=== PATIENT | male | born 1970 | race Caucasian/White ===

== ENCOUNTER 2019-09-07 18:16 | Emergency (ER) | payer OTHER ==
[~2019-09-07] VITALS: Ht 188 cm; Wt 95.3 kg
--- NOTE | ~2019-09-07 | EMS ---
[facility] [address] [place] [address] EMS Patient Care Report Name: SAEID MALONE Room #: REG KRISTINA Mcguire#: [id number] Admission: 09/07/19 Attend Phys: Discharge: Date of : 70 Report #: [id number] THIS REPORT FOR: //name// Report Transmitted: 09/07/2019 19:27 EMS Care Summary [facility] MED-ACT Incident [id number] @ 09/07/2019 16:44 Incident Location [address] [place] [address] Patient SAEID MALONE Male, 49 Years 1970 Patient Address [address] [place] [id number] Patient History Quadriplegia, Patient Allergies No known allergies, Patient Medications Other, Baclofen, Lorazepam, Chief Complaint Overheated Disposition Transported No Lights/[place] Reason Heart Problems/AICD Transported To [facility] Narrative Chief Complaint: "I feel overheated" HPI: Patient is a quadrapolegic. Patient states since 1000am he has been [facility] [address] [place] [address] EMS Patient Care Report Name: SAEID MALONE Room #: REG KRISTINA Mcguire#: [id number] Admission: 09/07/19 Attend Phys: Discharge: Date of : 70 Report #: [id number] outside in the hot sun on a summer day watching his son play baseball. He states about 30min ago he started to feel overheated, extremely lethargic, and a little nauseated. He states he has had multiple bottles of water today and ate a hamburger around 1400. Patient denies any history of diabetes or problems with his blood sugar. Patient denies any pain. Patient denies any recent traumatic injuries. Patient states he felt healthy and asymptomatic when he arrived to the baseball game at 1000. Assessment: Patient found seated in his motorized wheelchair with wet towels around him and a fan blowing on him in the shade. [facility]FD on scene performing assessments. Patient was warm, diaphoretic, and pale. Patient spoke in slow sentences, but was A&Ox4. See assessment tab for further details. Transport: Patient initially requested to sit in the ambulance AC and cool off. Patient was lifted out of his wheelchair and secured supine on the cot. Patient moved to ambulance were a blood sugar was rechecked and found to be 67. Patient ate half of a twix bar and slowly sipped approximately 100cc of gatorade. Patient's sugar increased to 91. After sitting in the air conditioned ambulance for a prolonged time patient agreed he didn't feel like he could drive home and that he should go to the hospital. Patient's instrument inspector arrived on scene and Lt. Amol assisted loading the patients wheelchair into the patient's vehicle. Transporting. Patient rested supine on the cot en-route to the hospital with AC on max settings. Patient's oxygen levels fluctuated between 88-94% while laying supine. Patient states his O2 levels normally drop when he lays flat but that he does not wear oxygen at home. Patient placed on 2PM of O2. Patient remained stable with no other changes in signs, symptoms, or condition en-route to the hospital. Disposition: Patient delivered to [facility]. Patient moved via lateral sheet drag maneuver without incident. Patient stated he felt a little improvement from initial contact but still not back to normal. Patient care and report transferred to attending RN. Initial Vitals @PTAP: 67,R: 16,BP: 157/111,Pain: 0/10,GCS: 15,SpO2: 94,Revised Trauma: 12, @17:19P: 59,R: 20,BP: 167/122,Pain: 0/10,GCS: 15,Glucose: 68,SpO2: 97,Revised Trauma: 12,TN Suspected: false @17:37P: 57,R: 20,BP: 174/108,Pain: 0/10,GCS: 15,Glucose: 91,SpO2: 97,Revised Trauma: 12,TN Suspected: false @17:59P: 49,R: 16,BP: 152/85,Pain: 0/10,GCS: 15,SpO2: 95,Revised Trauma: 12,TN Suspected: false @17:02P: 68,R: 16,Pain: 0/10,GCS: 15,Temp: 97.8F,SpO2: 92,TN Suspected: false @18:10P: 54,R: 16,BP: 132/76,Pain: 0/10,GCS: 15,SpO2: 95,Revised Trauma: 12,TN Suspected: false @18:06P: 48,R: 20,Pain: 0/10,GCS: 15,SpO2: 98,Revised Trauma: 12, @17:11P: 52,R: 20,BP: 190/124,Pain: 0/10,GCS: 15,Glucose: 53,SpO2: 97,Revised [facility] [address] [place] [address] EMS Patient Care Report Name: SAEID MALONE [facility] [id number] Admission: 09/07/19 Attend Phys: Discharge: Date of : 70 Report #: [id number] Trauma: 12,TN Suspected: false Assessments @16:57MENTAL:Person Oriented,Event Oriented,Time Oriented,Place Oriented,SKIN:Diaphoresis,Pale,HEENT:Head/Face: No Abnormalities,Neck/Airway: No Abnormalities,LUNG SOUNDS:ABDOMEN:PELVIS//GI:Pelvis Other,EXTREMITIES:Left Leg: Other,Right Leg: Other,Left Arm: Other,Right Arm: Other,PULSE:Radial: 2+ Normal,NEURO:No Abnormalities, Impression Heat Exhaustion Procedures @17:0212-Lead ECGResponse: UnchangedSucceeded@17:1912-Lead ECGResponse: UnchangedSucceeded@17:55Oxygen FlowRate: 2 Device: Nasal Cannula (NC) Response: ImprovedSucceeded 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,BP: 157/111 M,PULSE: 67,RR: 16 R,SPO2: 94 Ox,ETCO2: ,BG: ,PAIN: 0,GCS: 15, 16:41,Call Received 16:41,Psap Call 16:44,Dispatched 16:45,En Route 16:54,On Scene 16:56,At Patient 17:02,12-Lead ECG,Response: UnchangedSucceeded, 17:02,BP: / M,PULSE: 68,RR: 16 R,SPO2: 92 Ox,ETCO2: ,BG: ,PAIN: 0,GCS: 15, 17:11,BP: 190/124 M,PULSE: 52,RR: 20 R,SPO2: 97 Ox,ETCO2: ,B,PAIN: 0,GCS: 15, 17:19,12-Lead ECG,Response: UnchangedSucceeded, 17:19,BP: 167/122 M,PULSE: 59,RR: 20 R,SPO2: 97 Ox,ETCO2: ,B,PAIN: 0,GCS: 15, 17:37,BP: 174/108 M,PULSE: 57,RR: 20 R,SPO2: 97 Ox,ETCO2: ,B,PAIN: 0,GCS: 15, 17:53,Depart Scene 17:55,Oxygen FlowRate: 2 Device: Nasal Cannula (NC) Response: ImprovedSucceeded, 17:59,BP: 152/85 M,PULSE: 49,RR: 16 R,SPO2: 95 Ox,ETCO2: ,BG: ,PAIN: 0,GCS: 15, 18:06,BP: 137/ M,PULSE: 48,RR: 20 R,SPO2: 98 Ox,ETCO2: ,BG: ,PAIN: 0,GCS: 15, 18:10,BP: 132/76 M,PULSE: 54,RR: 16 R,SPO2: 95 Ox,ETCO2: ,BG: ,PAIN: 0,GCS: 15, 18:13,At Destination 18:25,Call Closed Disclaimer v1.1 Copyright 2020 [employer] This EMS Care Summary contains data elements from the applicable legal record (which may be displayed differently). It is designed to provide pertinent [facility] [address] [place] [address] EMS Patient Care Report Name: SAEID MALONE Room #: REG KRISTINA Mcguire#: [id number] Admission: 09/07/19 Attend Phys: Discharge: Date of : 70 Report #: [id number] information for the following purposes: continuity of care, clinical quality, and state data reporting. The complete legal record is available to ED staff and administrators of the receiving hospital in [facility]s Patient Tracker. All data is provided "as is."
[~2019-09-07 18:16] MED LIST: AMITRIPTYLINE H25 M2 PO; AMITRIPTYLINE100 MG PO; ATIVAN1 MG PO; BISACODYL SUPP10 MG RECTAL; CIPROFLOXACIN500 M1 PO; COLACE100 MG PO; CYMBALTA60 MG PO; DILAUDID 2 MG TA2 MG PO; DITROPAN XL5 M1 PO; LIORESAL 10 MG10 MG PO; LYRICA 75 MG CA75 MG PO; METHADONE HCL5 MG PO; MIRALAX17 GM PO; NIFEDIPINE10 MG PO; NUCYNTA ER50 MG PO; OXCARBAZEPINE150 MG PO; OXYBUTYNIN 5 MG5 M2 PO; OXYCODONE HCL 55 MG PO; PRILOSEC 20 MG20 MG PO; PRILOSEC20 MG PO; PROBIOTIC1 EAC1 PO; SENNA PO; TRAMADOL 50 MG50 MG PO; TRILEPTAL150 MG PO; TYLENOL325 MG PO
[2019-09-07 19:23] LABS: ABSOLUTE NEUTROPHILS 11.2 thou/uL (1.4-8.2); BASOPHILS 0.4 % (0.0-2.0); EOSINOPHILS 1.9 % (0.0-3.0); HEMATOCRIT 43.6 % (42.0-52.0); HEMOGLOBIN 14.8 gm/dL (14.0-18.0); LYMPHOCYTES 14.3 % (24.0-44.0); MCH 32.3 pg (26.0-34.0); MCHC 33.8 g/dL (28.0-37.0); MCV 95.5 fL (80.0-100.0); MONOCYTES 3.4 % (1.0-8.0); PLATELET COUNT 200 thou/uL (150-400); RBC 4.57 mil/uL (4.50-6.00); RDW 13.8 % (10.5-14.5); WBC 14.1 thou/uL (4.0-11.0)
[2019-09-07 19:46] LABS: ANION GAP 8 mmol/L (7-16); BUN 10 mg/dL (7-18); CALCIUM 8.7 mg/dL (8.5-10.1); CHLORIDE 95 mmol/L (98-107); CO2 26 mmol/L (21-32); CREATININE 0.5 mg/dL (0.7-1.3); GLUCOSE 114 mg/dL (74-106); POTASSIUM 3.1 mmol/L (3.5-5.1); SODIUM 129 mmol/L (136-145)
[2019-09-07 19:56] LABS: ALBUMIN 3.3 g/dL (3.4-5.0); SGOT 18 U/L (15-37); SGPT 21 U/L (30-65); TOTAL BILIRUBIN 0.4 mg/dL (0.2-1.0)
[2019-09-07 19:58] LABS: DIRECT BILIRUBIN < 0.1 mg/dL (<0.1-0.2)
[2019-09-07 20:25] LABS: URINE BILIRUBIN NEGATIVE (Negative); URINE BLOOD NEGATIVE (Negative); URINE CLARITY CLEAR; URINE COLOR YELLOW; URINE GLUCOSE-RANDOM* NEGATIVE (Negative); URINE KETONES NEGATIVE (Negative); URINE LEUKOCYTES-REFLEX TRACE (Negative); URINE NITRITE-REFLEX POSITIVE (Negative); URINE PROTEIN (DIPSTICK) NEGATIVE (Negative); URINE SPECIFIC GRAVITY <= 1.005 (1.005-1.035); URINE UROBILINOGEN 0.2 E.U./dl (0.2-1.0)
[2019-09-07 20:41] LABS: CASTS None Seen /LPF (None Seen); CRYSTALS None Seen /LPF (None Seen); MUCUS None Seen strn/LPF (None Seen); SQUAMOUS 0-3 Few /LPF (0-3); URINE RBC None Seen /HPF (0-2)
[2019-09-07 20:42] LABS: BACTERIA-REFLEX 1-9 Few /HPF (None Seen); URINE WBC-REFLEX 0-5 Rare /HPF (0-5)
[2019-09-07 22:13] VITALS: BP 109/62
--- NOTE | 2019-09-08 07:27 | EKG ---
[facility] [place] [address] ELECTROCARDIOGRAM REPORT Name: SAEID MALONE Room #: [facility]P [facility].#: [id number] Admission: 09/07/19 Attend Phys: Discharge: 09/07/19 Date of : 70 Report #: [id number] THIS REPORT FOR: cc: BERNADETTE LIN MD, PETER G. 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: [facility] : 1970 Requested By: Alondra Felder Order Number: [id number] MD: Paul Thompson Measurements Intervals [place] Rate: 66 P: -24 WI: 228 QRS: -44 QRSD: 115 T: 64 QT: 418 QTc: 438 Interpretive Statements Sinus rhythm Prolonged WI interval Left anterior fascicular block No previous ECG available for comparison Electronically Signed On 09-08-2019 7:27:08 CDT by Paul Thompson [email or web address] <ELECTRONICALLY SIGNED> By: Paul Thompson MD, [facility] 09/08/19 0727 1819 1819 Paul Thompson MD, [facility] /EPI
== END 2019-09-07 22:26 | disposition home or self-care (01) ==
LOC: ER 18:16
PROVIDERS: Emergency Medicine
DX: T67.5XXA Heat exhaustion, unspecified, initial encounter (principal); R53.1 Weakness; E86.0 Dehydration; E87.6 Hypokalemia; Z79.899 Other long term (current) drug therapy; X58.XXXA Exposure to other specified factors, initial encounter; Y93.89 Activity, other specified; Y92.89 Other specified places as the place of occurrence of the external cause; Y99.8 Other external cause status

== ENCOUNTER 2020-11-21 14:08 | Emergency (ER) | payer OTHER ==
[~2020-11-21] VITALS: Ht 188 cm; Wt 95.3 kg
[2020-11-21 14:55] LABS: URINE BILIRUBIN NEGATIVE (Negative); URINE BLOOD TRACE (Negative); URINE CLARITY CLOUDY; URINE COLOR YELLOW; URINE GLUCOSE-RANDOM* NEGATIVE (Negative); URINE KETONES TRACE (Negative); URINE PROTEIN (DIPSTICK) 1+ (Negative); URINE SPECIFIC GRAVITY 1.025 (1.005-1.035)
[2020-11-21 15:11] LABS: URINE LEUKOCYTES-REFLEX 1+ (Negative); URINE NITRITE-REFLEX POSITIVE (Negative)
[2020-11-21 15:27] LABS: SQUAMOUS 0-3 Few /LPF (0-3)
[2020-11-21 15:28] LABS: BACTERIA-REFLEX >30 Many /HPF (None Seen); CALCIUM OXALATE >10 Many /LPF (None Seen); URINE RBC 3-10 Few /HPF (NONE SEEN); URINE WBC-REFLEX >25 Many /HPF (0-5)
[2020-11-21 15:29] LABS: MUCUS 4-6 Moderate strn/LPF (None Seen)
[2020-11-21] MEDS ORDERED: AUGMENTIN 875-1 EACH PO (15:39)
[2020-11-21 16:16] VITALS: BP 107/69
== END 2020-11-21 16:17 | disposition home or self-care (01) ==
LOC: ER 14:08
PROVIDERS: Nurse Practitioner
DX: T16.1XXA Foreign body in right ear, initial encounter (principal); T16.2XXA Foreign body in left ear, initial encounter; N39.0 Urinary tract infection, site not specified; Z79.899 Other long term (current) drug therapy; X58.XXXA Exposure to other specified factors, initial encounter; Y93.89 Activity, other specified; Y92.89 Other specified places as the place of occurrence of the external cause; Y99.8 Other external cause status